=== PATIENT | male | born 1985 | race Caucasian/White ===

== ENCOUNTER 2020-12-22 13:03 | Emergency (ER) | payer OTHER, SELFPAY ==
[2020-12-22 13:11] VITALS: BP 126/85; PULSE 97; RESP 16; TEMP 36.9; O2SAT 99
--- NOTE | 2020-12-22 13:14 | ED.EYEPROB ---
HPI - Eye Problem General Chief complaint: Eye Problems Stated complaint: eye irritation Time Seen by Provider: 12/22/20 13:10 Source: patient and RN notes reviewed History of Present Illness HPI Narrative: Patient is a 35-year-old male who presents the urgent care with complaints of right eye matting, itchiness and redness. Patient states that he woke up with matting to the right eye today. Patient denies of taking anything [id number]. Denies of any known injury or trauma to the eye. Denies of any vision changes. No other acute complaints. No acute distress noted. Patient read the plan of care. Some parts of this dictation were generated by voice recognition software and may contain typographical and/or grammatical inaccuracies. Related Data Allergies Allergy/AdvReac Type Severity Reaction Status Date / Time No Known Allergies Allergy Unknown Unverified 07/24/16 15:53 Review of Systems Review of Systems: CONSTITUTIONAL: Denies fever, chills, or sweats. EYES: Reports of right eye drainage, matting, itchiness and redness ENT: Denies rhinorrhea, congestion, sore throat, or otalgia. CARDIOVASCULAR: Denies chest pain, palpitations, or edema. RESPIRATORY: Denies cough or dyspnea. GASTROINTESTINAL: Denies abdominal pain, nausea, vomiting, or diarrhea. GENITOURINARY: Denies dysuria or hematuria. SKIN: Denies rash or itching. MUSCULOSKELETAL: Denies back pain, joint pain, or myalgia. NEUROLOGIC: Denies headache, numbness, or weakness. All other systems reviewed are negative, except as documented in HPI. [facility] Family History Family History (Updated 10/06/15 @ 15:42 by DOCTOR UNKNOWN) Mother Family history of glaucoma Father Family history of pancreatic cancer Social History Social History Smoking status: Light tobacco smoker Alcohol intake: current Comments At the time of my signature, I reviewed and agree with the nursing past medical, surgical, social, and family history. There is no relevant family history pertinent to the patient complaint. Exam Narrative: GENERAL: This is a well-nourished, well-developed patient, in no apparent distress. HEAD: normocephalic, atraumatic. EYES: PERRL. Mild erythema to right sclera. Left sclera clear/white. Moderately injected right conjunctiva with clear drainage moderate irritation. Vision is grossly intact. EARS: External ears normal NOSE: External nose normal with no obvious nasal discharge, nares without redness, no rhinorrhea. THROAT: Mucous membranes moist NECK: Neck supple CARDIOVASCULAR: Regular rate and rhythm without murmurs, gallops, or rubs. RESPIRATORY: Clear to auscultation. Breath sounds equal bilaterally. No wheezes, rales, or rhonchi. SKIN: warm, intact with no suspicious lesions or rash, good texture and turgor. NEURO: awake, alert, and oriented to person, place and time. There were no obvious focal neurologic abnormalities. EXTREMITIES: No clubbing, cyanosis, or edema. Course Vital Signs Vital signs: Vital Signs Temperature 98.5 F 12/22/20 13:11 Pulse Rate 97 12/22/20 13:11 Respiratory Rate 16 12/22/20 13:11 Blood Pressure 126/85 12/22/20 13:11 Pulse Oximetry 99 12/22/20 13:11 Temperature 98.5 F 12/22/20 13:11 Pulse Rate 97 12/22/20 13:11 Respiratory Rate 16 12/22/20 13:11 Blood Pressure 126/85 12/22/20 13:11 Pulse Oximetry 99 12/22/20 13:11 Reviewed MDM - Eye Problem MDM Narrative Medical decision making narrative: Advised the patient to use the eyedrops to the affected eye as directed. Be sure to wipe the applicator tip after each application. May use a warm compress to the eye and use Zyrtec/Claritin or Benadryl as needed for itchiness. If you develop any increase in pain associated with changes in vision?go to the emergency room. Follow-up with your PCP within 2 to 5 days or for worsening symptoms or failure to improve. Differential Diagnosis Differential diagnosis: Likely corneal abrasion, co
== END 2020-12-22 13:28 | disposition home or self-care (01) ==
PROVIDERS: Emergency Provider Nurse Practitioner Family; PCP Internal Medicine
DX: H10.9 Unspecified conjunctivitis (principal)
CPT/HCPCS: 99203; G0463